=== PATIENT | female | born 1985 | race Caucasian/White ===

== ENCOUNTER 2021-07-20 12:52 | Outpatient (CLI) | payer BC | END 2021-07-20 12:53 | disposition home or self-care (01) | LOC: BICMRI 12:52 | PROVIDERS: ATTEND Specialist | DX: M54.16 Radiculopathy, lumbar region (principal); M51.27 Other intervertebral disc displacement, lumbosacral region; M48.07 Spinal stenosis, lumbosacral region | CPT/HCPCS: 72148 ==

== ENCOUNTER 2023-03-02 13:01 | Outpatient (CLI) | payer OTHER | END 2023-03-02 13:02 | disposition home or self-care (01) | LOC: TBSIIMAG 13:01 | PROVIDERS: ATTEND Specialist | DX: M54.16 Radiculopathy, lumbar region (principal); M48.07 Spinal stenosis, lumbosacral region | CPT/HCPCS: 72148 ==